=== PATIENT | male | born 1975 | race Caucasian/White ===

== ENCOUNTER 2023-03-06 14:51 | Outpatient (CLI) | payer BC | END 2023-03-06 14:52 | disposition home or self-care (01) | LOC: CSHRAD 14:51 | PROVIDERS: ATTEND Neurological Surgery | DX: M54.6 Pain in thoracic spine (principal); M54.50 Low back pain, unspecified; Z98.890 Other specified postprocedural states; M47.816 Spondylosis without myelopathy or radiculopathy, lumbar region | CPT/HCPCS: 72070; 72100 ==